=== PATIENT | male | born 1965 | race Two or more races ===

== ENCOUNTER → 2020-07-13 | Day surgery (SDC) | payer OTHER ==
[2020-07-13] VITALS (10 sets, daily range): BP systolic 129–141; BP diastolic 74–86
[~2020-07-13] VITALS: Ht 162.6 cm; Wt 90.7 kg
[~2020-07-13] MED LIST: Bupivacaine 0.25% Inj 30ml INJ ONE; D5 1/2NS 1,000 ML IV SCH; DiphenhydrAMINE 50mg/ml Inj IVP PRN; Duramorph PF 5mg/10ml amp IV ONE; Duramorph PF 5mg/10ml amp ONE; HYDROcodone/Acetamin 5/325 tab ORAL PRN; HYDROmorphone 1mg/ml Carpuject SUBQ PRN; Kenalog-40 1ml Vial ONE; Ketorolac 30mg Inj IV PRN; Ketorolac 30mg Inj ONE; LR 1000ml 1,000 ML IVLG SCH; LR 1000ml ONE; Lidocaine 1% 10mg/ml/EPI 0.01mg/ml 30ml INJ ONE; Lidocaine 1% MPF 10mg/ml 5ml ONE; Meperidine 25mg/1ml Inj (FOR RIGORS ONLY) IV PRN; Midazolam 2mg/2ml Inj ONE; NS 275ml ONE; NS Irrig 1000ml ONE; Tylenol #3 tab (300mg/30mg) ORAL PRN; ceFAZolin 1gm IVPB IVPB ONE; celeBREX 200mg Cap **SURGERY PATIENTS ONLY ORAL ONE; fentaNYL 100 mcg/2 mL IV ONE; oxyCONTIN 20mg tab ORAL ONE
--- NOTE | 2020-07-13 07:07 | Anethesia Preoperative Eval ---
Anesthesia Pre-op PMH/ROS General Date of Evaluation: Jul 13, 2020 Time of Evaluation: 07:03 Anesthesiologist: Yvette ASA Score: ASA 2 Mallampati Score Class I : Soft palate, uvula, fauces, pillars visible Class II: Soft palate, uvula, fauces visible Class III: Soft palate, base of uvula visible Class IV: Only hard plate visible Mallampati Classification: Class II Surgeon: Nile Diagnosis: R knee pain Surgical Procedure: R knee scope Anesthesia History: none Family History: no anesthesia problems Allergies: Coded Allergies: No Known Allergies (Unverified , 07/11/20) Medications: see eMAR Patient NPO?: Yes Past Medical History Cardiovascular: Denies: HTN, CAD, [place], valve dz, arrhythmia, other Pulmonary: Denies: asthma, COPD, [place]ITT[place], other Gastrointestinal/Genitourinary: Reports: GERD; Denies: CRI, ESRD, other Neurologic/Psychiatric: Reports: other - chronic pain; Denies: dementia, CVA, depression/anxiety, TIA Endocrine: Denies: DM, hypothyroidism, steroids, other HEENT: Denies: cataract (L), cataract (R), glaucoma, [place] (L), [place] (R), other Hematology/Immune: Denies: anemia, DVT, bleeding disorder, other Musculoskeletal/Integumentary: Denies: OA, RA, DJD, DDD, edema, other Other: obesity PMH Narrative: as above PSxH Narrative: Appendectomy with X- lap Anesthesia Pre-op Phys. Exam Physician Exam Last Vital Signs Date Time Temp Pulse Resp B/P (MAP) Pulse Ox O2 Delivery O2 Flow Rate FiO2 07/13/20 06:59 97.9 54 18 141/79 100 Room Air Constitutional: NAD Neurologic: CN 2-12 intact Cardiovascular: RRR, no M/R/G Respiratory: CTA Gastrointestinal: S/NT/ND Airway Exam Mallampati Score: Class II MO: full Neck: stiff ROM: limited Teeth: missing Dentures: no upper, no lower Anesthesia Pre-op A/P Labs see chart Studies Pre-op Studies: EKG - NSR Risk Assessment & Plan Assessment: ASA 2 Plan: GA wth LMA Status Change Before Surgery: No Pre-Antibiotics Drug: Ancef 2gr. Given Within 1 Hr of Incision: Yes Time Given: 08:05 Cheo Crawford MD Jul 13, 2020 07:07
--- NOTE | 2020-07-13 07:37 | Operative Note - PDOC ---
Operative Note Operative Note Pre-op Diagnosis: right knee internal deragement Procedure: see op report Post-op Diagnosis: same as pre-op plus Operative Findings: consistent w/pre-op dx studies Anesthesia: MAC Specimen: none Complications: none Condition: stable Estimated Blood Loss: none Implant(s) used?: No Emiliano Dowd MD Jul 13, 2020 07:37
--- NOTE | 2020-07-13 07:37 | Pre-Procedure Note/Attestation ---
Pre-Procedure Note/Attestation Complete Prior to Procedure Planned Procedure: right Procedure Narrative: knee arthrocopy, possible menisectomy Indications for Procedure Pre-Operative Diagnosis: right knee internal deragement Attestation I attest that I discussed the nature of the procedure; its benefits; risks and complications; and alternatives (and the risks and benefits of such alterna tives), prior to the procedure, with the patient (or the patient's legal account manager sales representative). I attest that, if there was a reasonable possibility of needing a blood transfusion, the patient (or the patient's legal account manager sales representative) was given the [facility] standardized written summary, pursuant to the Mario Colten Blood Safety Act ([place] Health and Safety Code # 1645, as amended). I attest that I re-evaluated the patient just prior to the surgery and that there has been no change in the patient's H&P, except as documented below: Emiliano Dowd MD Jul 13, 2020 07:37
--- NOTE | 2020-07-13 08:34 | Immediate Post-Op Evaluation ---
Immediate Post-Op Evalulation Immediate Post-Op Evalulation Procedure: R knee arthroscopy meniscectomy Date of Evaluation: Jul 13, 2020 Time of Evaluation: 08:32 IV Fluids: 700 Blood Products: none Estimated Blood Loss: min Urinary Output: none Blood Pressure Systolic: 132 Blood Pressure Diastolic: 76 Pulse Rate: 52 Respiratory Rate: 18 O2 Sat by Pulse Oximetry: 98 Temperature (Fahrenheit): 98.2 Pain Score (1-10): 1 Nausea: No Vomiting: No Complications none Patient Status: reacts, patent, none Hydration Status: adequate Cheo Crawford MD Jul 13, 2020 08:34
--- NOTE | 2020-07-13 10:02 | 48 Hour Post Anesthesia Eval ---
Post Anesthesia Evaluation Procedure: R knee arthroscopy meniscectomy Date of Evaluation: Jul 13, 2020 Time of Evaluation: 10:01 Blood Pressure Systolic: 138 0: 74 Pulse Rate: 62 Respiratory Rate: 18 Temperature (Fahrenheit): 97.6 O2 Sat by Pulse Oximetry: 98 Airway: patent Nausea: No Vomiting: No Pain Intensity: 2 Hydration Status: adequate Cardiopulmonary Status: stable Mental Status/LOC: patient returned to baseline Follow-up Care/Observations: n/a Post-Anesthesia Complications: none Follow-up care needed: ready to discharge Cheo Crawford MD Jul 13, 2020 10:02
--- NOTE | 2020-07-13 12:30 | Operative Note - Dictated ---
DATE OF OPERATION: 07/13/2020 PREOPERATIVE DIAGNOSES: 1. Right knee medial meniscus tear. 2. Right knee MCL sprain. 3. Hypertrophic synovial tissue, medial, lateral and patellofemoral compartment. 4. ACL sprain. POSTOPERATIVE DIAGNOSES: 1. Right knee medial meniscus tear. 2. Right knee MCL sprain. 3. Hypertrophic synovial tissue, medial, lateral and patellofemoral compartment. 4. ACL sprain. 5. Partial tear lateral meniscus. PROCEDURES: 1. Right knee arthroscopic partial medial and lateral meniscectomy. 2. Synovectomy medial, lateral, and patellofemoral compartment. SURGEON: Emiliano Dowd MD. ANESTHESIA: MAC with local. INDICATION: The patient is a pleasant gentleman, who has had progressive right knee pain. The MRI showed a tear of the meniscus along with MCL sprain, failed conservative treatment, elected to undergo right knee arthroscopy and medial meniscectomy. There was concern that he may have an ACL sprain. Given his age and activity level, it was felt that at the time of surgery, we will make appropriate evaluation of the ACL. DESCRIPTION OF PROCEDURE: After informed consent was obtained, the patient was brought to the operating room. The patient was placed under general anesthesia. Right leg was prepped and draped in a sterile manner. Time-out performed. Inferolateral stab incision was then made. Trocar was introduced into the patellofemoral compartment. There was hypertrophic synovial tissue in the patellofemoral compartment. Medial compartment was entered, free from loose bodies. Medial compartment was entered. There was a tear of the medial meniscus. A medial working portal was established and meniscectomy extending to the posterior horn was performed. Stable rim of meniscus was performed, synovectomy was extended anteriorly along with position of medial compartment. There was mild chondral damage of the tibial plateau. The synovectomy extended to intercondylar notch, lateral compartment. The ACL appeared to be intact. There was slight increase in laxity, but overall it was felt that this represent more of a sprain rather than true tear. Lateral compartment was entered and there was slight fraying of the posterior horn as well as middle body. Partial debridement of the lateral meniscus was performed. Once that was done, the camera was placed in the patellofemoral compartment. Synovectomy was completed in the patellofemoral compartment. Once this was done, the instruments were removed. Portal sites were closed using 3-0 Monocryl sutures. Steri-Strips and a sterile dressing were applied. ESTIMATED BLOOD LOSS: None. COMPLICATIONS: None. SPECIMENS: None. IMPLANTS: None. Emiliano Dowd M.D. DR: YONATAN JOB#: [id number] CC: RABIA
== END | disposition home or self-care (01) ==
LOC: SUR 06:17
DX: S83.241A Other tear of medial meniscus, current injury, right knee, initial encounter (principal); M67.261 Synovial hypertrophy, not elsewhere classified, right lower leg; S83.411A Sprain of medial collateral ligament of right knee, initial encounter; S83.511A Sprain of anterior cruciate ligament of right knee, initial encounter; S83.281A Other tear of lateral meniscus, current injury, right knee, initial encounter; X58.XXXA Exposure to other specified factors, initial encounter; Y92.9 Unspecified place or not applicable; K21.9 Gastro-esophageal reflux disease without esophagitis; E66.9 Obesity, unspecified; Z90.89 Acquired absence of other organs; Z68.34 Body mass index [BMI] 34.0-34.9, adult
CPT/HCPCS: 29876; 29881; 94003; J0690; J1885; J2250; J2704; J3010; J3301; J3490; J7050; J7120; U0002; 94150